=== PATIENT | male | born 1985 | race Caucasian/White ===

== ENCOUNTER 2018-09-28 02:20 | Emergency (ER) | payer OTHER ==
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
== END 2018-09-28 04:30 | disposition home or self-care (01) ==
LOC: MADERS 02:20
DX: S09.90XA Unspecified injury of head, initial encounter (principal); I10 Essential (primary) hypertension; V89.2XXA Person injured in unspecified motor-vehicle accident, traffic, initial encounter
CPT/HCPCS: 70450; 72125

== ENCOUNTER 2020-05-29 15:12 | Emergency (ER) | payer OTHER ==
[2020-05-29] MEDS ORDERED: Lidocaine 2% 20 ml MDV ONE (15:28)
--- NOTE | 2020-05-29 15:44 | RAD ---
XR Finger(s) Lt Min 2 View HISTORY: Chainsaw injury, left index finger, pain FINDINGS: No fracture or dislocation is identified. No radiopaque foreign body is identified.
[2020-05-29] MEDS ORDERED: Lidocaine 2% w/Epinephrine 1:200K 20 ML VIAL ONE (15:56)
== END 2020-05-29 16:39 | disposition home or self-care (01) ==
LOC: MADERS 15:12
DX: S61.211A Laceration without foreign body of left index finger without damage to nail, initial encounter (principal); I10 Essential (primary) hypertension; Z79.899 Other long term (current) drug therapy; W31.2XXA Contact with powered woodworking and forming machines, initial encounter
CPT/HCPCS: 12002

== ENCOUNTER 2024-04-10 23:25 | Emergency (ER) | payer OTHER ==
[2024-04-10] MEDS ORDERED: Lidocaine 1% PF 5 ML VIAL ONE (23:52)
== END 2024-04-11 00:39 | disposition home or self-care (01) ==
LOC: MADERS 23:25
DX: S92.511A Displaced fracture of proximal phalanx of right lesser toe(s), initial encounter for closed fracture (principal); I10 Essential (primary) hypertension; W22.8XXA Striking against or struck by other objects, initial encounter
CPT/HCPCS: 28515